=== PATIENT | female | born 1990 | race Hispanic/Latino ===

== ENCOUNTER 2016-08-21 08:49 | Emergency (ER) | payer OTHER, SELFPAY ==
[2016-08-21] MEDS ORDERED: Acetaminophen 500 MG TAB ONE (09:00)
[2016-08-21 09:08] LABS: Blood, Urine Moderate (Negative); Clarity Cloudy (Clear); Glucose, Urine (Dipstick) Negative (Negative); Leukocyte Trace (Negative); Nitrite Negative (Negative); Protein, Urine (Dipstick) > or equal to 300 mg/dL (Neg-Trace); Specific Gravity, Urine 1.025 (1.005-1.030)
[2016-08-21 09:14] LABS: Bilirubin Negative (Negative); Icto Negative (Negative)
[2016-08-21 09:18] LABS: Bacteria/HPF 1+ HPF (None Seen); Yeast-All Forms Rare HPF (None Seen)
[2016-08-21 09:19] LABS: Other Microscopic Description NO
[2016-08-21 09:20] LABS: Pregu Control Bar Appear? YES (CONTROL BAR); Specific Gravity 1.025 (1.002-1.036)
[2016-08-21] MEDS ORDERED: Sodium Chloride 0.9% 1,000 ML ONE (09:22)
[2016-08-21 09:58] LABS: ALT (SGPT) 14 U/L (0-55); AST (SGOT) 11 U/L (5-34); Albumin 3.9 g/dL (3.5-5.0); Alkaline Phosphatase 84 U/L (40-150); Anion Gap 15 mmol/L (10-20); BUN (Urea Nitrogen) 11 mg/dL (7.0-18.7); Bilirubin, Total 0.6 mg/dL (0.2-1.2); Calc. Creatinine Clearance 0 mL/min (70-130); Calcium 8.7 mg/dL (7.8-10.44); Carbon Dioxide 19 mmol/L (22-29); Chloride 102 mmol/L (98-107); Estimated GFR-MDRD 86; Globulin 3.8 g/dL (2.4-3.5); Glucose 118 mg/dL (70-105); Lipase 11 U/L (8-78); Potassium 3.4 mmol/L (3.5-5.1); Protein, Total 7.7 g/dL (6.0-8.3); Sodium 133 mmol/L (136-145)
[2016-08-21 10:06] LABS: Hemoglobin 12.3 g/dL (12.0-16.0); Mean Corpuscular Hemoglobin 25.9 pg (27.0-31.0); Mean Corpuscular Volume 80.9 fl (81.0-99.0); Mean Platelet Volume 8.3 fL (7.4-10.4); Platelet Count 180 thou/uL (130-400); Red Blood Cell (RBC) Count 4.75 mill/uL (4.20-5.40); White Blood Cell (WBC) Count 16.4 thou/uL (4.8-10.8)
[2016-08-21 10:07] LABS: Anisocytosis SLIGHT = 6-15 cells (100X) (0-5/hpf); Band 4 % (5-11); Lymphocytes 10 % (21-51); MDiff Complete? YES; Monocytes 19 % (0-10); Neutrophil 67 % (42-75); PLT Morphology Comment Appears Adequate
[2016-08-21] MEDS ORDERED: Ciprofloxacin 500 MG TAB ONE (10:16)
[2016-08-21] MEDS ORDERED: Potassium Chloride 20 MEQ TAB ONE (10:16)
--- NOTE | 2016-08-21 10:31 | CT ---
CT ABDOMEN AND PELVIS WITHOUT IV CONTRAST: Date: 08/21/16 HISTORY: Right-sided flank pain with hematuria for 4 days. FINDINGS: Lack of intravenous contrast limits sensitivity for evaluation of the parenchymal organs. 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 There is mild hydronephrosis on the right. Exact etiolog y for the obstruction is uncertain. A definite ureteral calculus is unable to be delineated. Ureters are mostly obscured due to adjacent unopacified structures. There are nonobstructing right renal ca lculi present, largest measuring approximately 4.0 mm. There are at least three nonobstructing right renal calculi seen. No overt hydronephrosis is seen on the left. The dome of the liver is obscured. The lung bases, visualized portions of the liver, spleen, pancrea s, bilateral adrenal glands, uterus, and adnexal structures demonstrate a grossly normal nonenhanced CT appearance. The urinary bladder is decompressed. The appendix is not visualized on this exam. IMPRESSION: 1. 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 The exact etiology for the hydronephro sis is unable to be delineated on this examination. The right ureter is not well seen due to unopaci fied structures but does not appear dilated. 2. Nonobstructing right renal calculi. POS: [facility]
== END 2016-08-21 10:19 | disposition home or self-care (01) ==
LOC: NAV ERS 08:49
DX: N39.0 Urinary tract infection, site not specified (principal); N13.2 Hydronephrosis with renal and ureteral calculous obstruction
CPT/HCPCS: 74176; 80053; 81003; 81015; 81025; 83690; 85025; 96360; J7050

== ENCOUNTER 2023-11-22 12:41 | Emergency (ER) | payer SELFPAY ==
[2023-11-22] MEDS ORDERED: Metoclopramide HCl 10 MG (2 mL) VIAL ONE (13:05)
[2023-11-22] MEDS ORDERED: Acetaminophen 500 MG TAB ONE (13:05)
[2023-11-22] MEDS ORDERED: Sodium Chloride 0.9% 1,000 ML ONE (13:05)
[2023-11-22 14:04] LABS: Pregnancy Test - Urine (BHCG) Negative (Negative); Pregu Control Background? CLEAR/WHITE (CLR/WHITE); Pregu Control Bar Appear? YES (CONTROL BAR); Specific Gravity 1.011 (1.002-1.036)
== END 2023-11-22 14:36 | disposition home or self-care (01) ==
LOC: NAV ERS 12:41
DX: R51.9 Headache, unspecified (principal); R11.2 Nausea with vomiting, unspecified
CPT/HCPCS: 81025; 96365; J2765; J7050